=== PATIENT | female | born 1990 | race Caucasian/White ===

== ENCOUNTER 2025-02-23 10:43 | Emergency (ER) | payer SELFPAY ==
[2025-02-23 11:09] LABS: Specific Gravity 1.029 (1.005-1.030)
[2025-02-23 11:12] LABS: Specific Gravity 1.029 (1.005-1.030); Urine Bacteria None Seen /HPF (<20); Urine Bilirubin NEGATIVE (Negative); Urine Blood 1+ (Negative); Urine Clarity Extremely Turbid (Clear); Urine Color Yellow (Yellow); Urine Culture Reflex Order REFLEXED; Urine Glucose NEGATIVE (Negative); Urine Ketones 1+ (Negative); Urine Microscopic Reflex YN ORDER UMIC; Urine Mucus 4+ /HPF (None Seen); Urine Nitrite NEGATIVE (Negative); Urine Protein 1+ (Negative); Urine Urobilinogen 1+ (Normal)
[2025-02-23 11:23] LABS: Absolute Basophils 0.1 K/uL (0-0.5); Absolute Eosinophils 0.1 K/uL (0-0.5); Absolute Lymphocytes (CBC) 2.5 K/uL (0.7-4.9); Absolute Monocytes 0.4 K/uL (0.1-1.3); Absolute Neutrophil 4.2 K/uL (1.8-8.0); Basophils % 0.7 % (0-1.3); Eosinophils % 2.1 % (0-4.4); Hematocrit 39.2 % (36.0-45.0); Hemoglobin 13.6 g/dL (12.0-15.0); Lymphocytes % 34.1 % (15.3-44.8); MCH 33.7 pg (27.0-35.0); MCHC 34.6 g/dL (32.0-36.0); MCV 97.2 fL (80-100); MPV 7.9 fL (7.6-11.3); Monocytes % 5.6 % (3.3-12.3); Neutrophils % 57.5 % (41.7-73.7); Platelets 249 thou/uL (152-406); RBC Red Blood Cell Count 4.04 M/uL (3.86-4.86)
[2025-02-23 11:44] LABS: ALT/SGPT 15 U/L (13-56); Albumin 3.8 g/dL (3.4-5.0); Alkaline Phosphatase 68 U/L (45-117); Anion Gap 8.5 mEq/L (5.0-15.0); BUN Blood Urea Nitrogen 7 mg/dL (7-18); Bicarbonate 24 mEq/L (21-32); Bilirubin Total 0.7 mg/dL (0.2-1.0); Globulin 3.7 g/dL (2.3-3.5); Glomerular Filtration Rate 114 ml/min (=/>90); Glucose Level 93 mg/dL (74-106); Lipase 22 U/L (13-75); Potassium 3.5 mEq/L (3.5-5.1); Protein, Total 7.5 g/dL (6.4-8.2); Sodium Level 137 mEq/L (136-145)
[2025-02-23 11:54] LABS: AST/SGOT < 10 U/L (15-37)
[2025-02-23] MEDS ORDERED: ONDANSETRON 4 MG/2 ML VIAL ONE (11:59)
[2025-02-23] MEDS ORDERED: NA CHLORIDE 0.9% 1,000 ML ONE (11:59)
[2025-02-23] MEDS ORDERED: NA CHLORIDE 0.9% 100 ML ONE (12:11)
[2025-02-23] MEDS ORDERED: CEFTRIAXONE 1000 MG/VIAL ONE (12:11)
--- NOTE | 2025-02-23 12:39 | RAD REPORT ---
EXAMINATION: CT ABDOMEN AND PELVIS WITH CONTRAST CLINICAL INDICATION: Abdominal pain TECHNIQUE: CT abdomen and pelvis was performed, after the administration of 100 cc Isovue-300.. Sagit pritesh and coronal reconstructions were obtained. One or more of the following dose reduction techniques were used: Automated exposure control, adjustment of the mA and kV according to patient si ze, and iterative reconstruction. Unless otherwise specified, incidental findings do not require dedicated imaging follow-up. [id number]. Oral contrast was not given which limits evaluation of bowel and appendix. COMPARISON: .None FINDINGS: Liver, spleen, pancreas, adrenals and kidneys appear unremarkable No evidence of diverticulitis. Normal appendix. Small umbilical hernia. Large ventral hernia pelvis. The neck measures 6 cm. It contains multiple loops of small bowel. The h ernia sac measures 16 cm. No obstruction visualized. No adnexal mass. No evidence of diverticulitis.. Cholecystectomy : IMPRESSION: Large ventral hernia within the pelvis small bowel
--- NOTE | 2025-02-23 12:41 | ER ---
Nurse's Notes [facility] [place] Name: Laquita Urena Age: 34 yrs Sex: Female : 1990 Arrival Date: 02/23/2025 Time: 10:43 Bed 12 Private MD: Diagnosis: Abdominal pain, unspecified;Ventral hernia without obstruction or gangrene-reduced;UTI/ Urinary tract infection, site not specified Presentation: 02/23 11:11 Chief complaint:. Chief complaint: Patient states: Abdominal hernia to the lower right ld1 quadrant. Pt reports pain to LRQ this morning - states "My hernia popped out.". Coronavirus screen: At this time, the client does not indicate any symptoms associated with coronavirus-19. Ebola Screen: No symptoms or risks identified at this time. Initial Sepsis Screen: Does the patient meet any 2 criteria? No. Patient's initial sepsis screen is negative. Does the patient have a suspected source of infection? No. Patient's initial sepsis screen is negative. Risk Assessment: Do you want to hurt yourself or someone else? Patient reports no desire to harm self or others. Onset of symptoms was February 23, 2025 at 11:13. 11:11 Method Of Arrival: Ambulatory ld1 11:11 Acuity: FER 3 ld1 Triage Assessment: 11:11 General: Appears in no apparent distress. comfortable, Behavior is calm, cooperative, ld1 appropriate for age. Pain: Complains of pain in right lower quadrant Pain does not radiate. Pain currently is 8 out of 10 on a pain scale. Quality of pain is described as throbbing, Pain began suddenly, Is continuous. EENT: No signs and/or symptoms were reported regarding the EENT system. Neuro: Level of Consciousness is awake, alert, obeys commands, Oriented to person, place, time, situation. Cardiovascular: Capillary refill < 3 seconds Patient's skin is warm and dry. Respiratory: Airway is patent Respiratory effort is even, unlabored. GI: Abdomen is round non-distended, Reports lower abdominal pain. : No signs and/or symptoms were reported regarding the genitourinary system. Derm: No signs and/or symptoms reported regarding the dermatologic system. Musculoskeletal: No signs and/or symptoms reported regarding the musculoskeletal system. ROOM ATTENDANTS: 13:26 LMP N/A - control method, Not me1 Historical: - Allergies: 11:10 Reglan; ld1 - PMHx: 11:10 Depressive disorder; ld1 11:11 Hypertensive disorder; ld1 - PSHx: 11:10 Cholecystectomy; section; ld1 - Immunization history:: Adult Immunizations up to date. - Infectious Disease History:: Denies. - Social history:: Smoking status: Patient denies any tobacco usage or history of. - Family history:: not pertinent. Screenin:10 [facility] ED Fall Risk Assessment (Adult) History of falling in the last 3 months, me1 including since admission No falls in past 3 months (0 pts) Confusion or Disorientation No (0 pts) Intoxicated or Sedated No (0 pts) Impaired Gait No (0 pts) Mobility Assist Device Used No (0 pt) Altered Elimination No (0 pt) Score/Fall Risk Level 0 - 2 = Low Risk Maintained a safe environment, Provided non-skid footwear, Hourly rounding (assess needs \\T\\ fall precautionary measures) done. Abuse screen: Denies threats or abuse. Nutritional screening: No deficits noted. Tuberculosis screening: No symptoms or risk factors identified. Assessment: 12:10 General: Appears in no apparent distress. well groomed, well developed, well nourished, me1 Behavior is calm, cooperative, appropriate for age, Reports Abdominal hernia to the lower right quadrant. Pt reports pain to LRQ this morning - states "My hernia popped out.". Pain: Complains of pain in umbilical area and abdomen and right lower quadrant Pain does not radiate. Pain currently is 6 out of 10 on a pain scale. Quality of pain is described as aching, crampy, Pain began gradually, Is continuous. Neuro: Level of Consciousness is awake, alert, obeys commands, Oriented to person, place, time, situation, Appropriate for age. Cardiovascular: Patient's skin is warm and dry. Respiratory: Airway is patent Trachea midline Respiratory effort is even, unlabored, Respiratory pattern is regular, symmetrical. GI: No signs and/or symptoms were reported involving the gastrointestinal system. Abdomen is round non-distended, Bowel sounds present X 4 quads. Abd is soft X 4 quads. : No signs and/or symptoms were reported regarding the genitourinary system. EENT: No signs and/or symptoms were reported regarding the EENT system. Derm: Skin is intact, is healthy with good turgor, Skin is pink, warm \\T\\ dry. Musculoskeletal: No signs and/or symptoms reported regarding the musculoskeletal system. 13:08 Reassessment: Discharge delayed for rocephin to finish infusing. me1 Vital Signs: 11:11 BP 153 / 99; Pulse 99; Resp 18; Temp 97.8(O); Pulse Ox 100% on R/A; Weight 84.37 kg; ld1 Height 5 ft. 5 in. ; Pain 6/10; 13:25 BP 142 / 88; Pulse 91; Resp 16; Temp 98.1; Pulse Ox 100% ; me1 11:11 Body Mass Index 30.95 (84.37 kg, 165.1 cm) ld1 11:11 Pain Scale: Adult ld1 ED Course: 10:44 Patient arrived in ED. im 10:45 Nj Helm MD is Attending Physician. zeynep 11:11 Arm band placed on right wrist. ld1 11:13 Triage completed. ld1 11:15 Inserted saline lock: 20 gauge in right antecubital area, using aseptic technique. ld1 Blood collected. Flushed with 10 mL NS. 11:15 Urinalysis w/ reflexes Sent. ld1 12:04 Ivana Cabello, DIMAS is Primary Nurse. me1 12:04 Urine Culture Sent. me1 12:10 Patient has correct armband on for positive identification. Bed in low position. Call me1 light in reach. Side rails up X2. Provided Education on: POC. Verbalized understanding.. Client placed on continuous cardiac and pulse oximetry monitoring. NIBP monitoring applied. Pulse ox on. NIBP on. 12:10 No provider procedures requiring assistance completed. me1 12:29 CT Abd/Pelvis - IV Contrast Only In Process Unspecified. EDMS 12:40 Ronny Brady MD is Referral Physician. zeynep 13:26 IV discontinued, intact, bleeding controlled, No redness/swelling at site. Pressure me1 dressing applied. Administered Medications: 12:10 Drug: Ondansetron IVP 4 mg IVP once; over 2 minutes Route: IVP; Site: right antecubital;me1 12:51 Follow up: Response: No adverse reaction; Nausea is decreased me1 12:10 Drug: NS 0.9% IV 1000 ml IV at 1 bolus Per protocol; to be given as a bolus over 60 me1 minutes Route: IV; Rate: 1 bolus; Site: right antecubital; 13:23 Follow up: IV Status: Completed infusion me1 12:17 Drug: Rocephin IV 1 grams IV at per protocol once; Given slow IV push per pharmacy me1 instructions Route: IV; Rate: per protocol; Site: right antecubital; 13:22 Follow up: Response: No adverse reaction; IV Status: Completed infusion me1 12:51 Drug: Ciprofloxacin PO 500 mg PO once Route: PO; me1 13:22 Follow up: Response: No adverse reaction me1 Medication: 12:10 VIS not applicable for this client. me1 Outcome: 12:41 Discharge ordered by . zeynep 13:26 Discharged to home ambulatory, me1 13:26 Condition: stable 13:26 Discharge instructions given to patient, Instructed on discharge instructions, follow up and referral plans. medication usage, Demonstrated understanding of instructions, follow-up care, medications, Prescriptions given X 1, 13:27 Patient left the ED. me1 Signatures: Dispatcher [employer] EDNj Joseph MD MD cha Sims, Lauren, DIMAS RN ld1 Kyung Barton Michelle, RN RN me1 Corrections: (The following items were deleted from the chart) 11:13 11:11 Chief complaint: ld1 ld1 13:23 11:11 Chief complaint: Patient states: Abdominal hernia to the lower right quadrant. Pt me1 reports pain to LRQ this morning - states "My hernia popped out." ld1
--- NOTE | 2025-02-23 12:41 | EDPHYS ---
Physician Documentation [facility] Name: Laquita Urena Age: 34 yrs Sex: Female : 1990 Arrival Date: 02/23/2025 Time: 10:43 Bed 12 Private MD: ED Physician Nj Helm HPI: 02/23 12:31 This 34 yrs old Female presents to ER via Ambulatory with complaints of zeynep Abdominal Pain. 12:31 The patient presents with abdominal pain right lower quadrant. Onset: The zeynep symptoms/episode began/occurred 2 day(s) ago. The symptoms do not radiate. Modifying factors: The symptoms are alleviated by nothing. Severity of pain: At its worst the pain was moderate in the emergency department the pain has improved moderately. The patient has experienced similar episodes in the past, several times. TOOL PLANNER: 13:26 LMP N/A - control method, Not me1 Historical: - Allergies: 11:10 Reglan; ld1 - PMHx: 11:10 Depressive disorder; ld1 11:11 Hypertensive disorder; ld1 - PSHx: 11:10 Cholecystectomy; section; ld1 - Immunization history:: Adult Immunizations up to date. - Infectious Disease History:: Denies. - Social history:: Smoking status: Patient denies any tobacco usage or history of. - Family history:: not pertinent. ROS: 12:31 Constitutional: Negative for fever, chills, and weight loss, Eyes: Negative for injury, zeynep pain, redness, and discharge, ENT: Negative for injury, pain, and discharge, Neck: Negative for injury, pain, and swelling, Cardiovascular: Negative for chest pain, palpitations, and edema, Respiratory: Negative for shortness of breath, cough, wheezing, and pleuritic chest pain, Back: Negative for injury and pain, : Negative for injury, bleeding, discharge, and swelling, MS/Extremity: Negative for injury and deformity, Skin: Negative for injury, rash, and discoloration, Neuro: Negative for headache, weakness, numbness, tingling, and seizure, Psych: Negative for depression, anxiety, suicide ideation, homicidal ideation, and hallucinations, Allergy/Immunology: Negative for hives, rash, and allergies, Endocrine: Negative for neck swelling, polydipsia, polyuria, polyphagia, and marked weight changes, Hematologic/Lymphatic: Negative for swollen nodes, abnormal bleeding, and unusual bruising, 12:31 Abdomen/GI: Positive for abdominal pain, of the right lower quadrant, right ventral hernia reduced, Exam: 12:38 Constitutional: This is a well developed, well nourished patient who is awake, alert, zeynep and in no acute distress. Head/Face: Normocephalic, atraumatic. Eyes: Pupils equal round and reactive to light, extra-ocular motions intact. Lids and lashes normal. Conjunctiva and sclera are non-icteric and not injected. Cornea within normal limits. Periorbital areas with no swelling, redness, or edema. ENT: Nares patent. No nasal discharge, no septal abnormalities noted. Tympanic membranes are normal and external auditory canals are clear. Oropharynx with no redness, swelling, or masses, exudates, or evidence of obstruction, uvula midline. Mucous membranes moist. Neck: Trachea midline, no thyromegaly or masses palpated, and no cervical lymphadenopathy. Supple, full range of motion without nuchal rigidity, or vertebral point tenderness. No Meningismus. Chest/axilla: Normal chest wall appearance and motion. Nontender with no deformity. No lesions are appreciated. Cardiovascular: Regular rate and rhythm with a normal S1 and S2. No gallops, murmurs, or rubs. Normal PMI, no JVD. No pulse deficits. Respiratory: Lungs have equal breath sounds bilaterally, clear to auscultation and percussion. No rales, rhonchi or wheezes noted. No increased work of breathing, no retractions or nasal flaring. Back: No spinal tenderness. No costovertebral tenderness. Full range of motion. Skin: Warm, dry with normal turgor. Normal color with no rashes, no lesions, and no evidence of cellulitis. MS/ Extremity: Pulses equal, no cyanosis. Neurovascular intact. Full, normal range of motion., bilateral aka Neuro: Awake and alert, GCS 15, oriented to person, place, time, and situation. Cranial nerves II-XII grossly intact. Motor strength 5/5 in all extremities. Sensory grossly intact. Cerebellar exam normal. Normal gait. Psych: Awake, alert, with orientation to person, place and time. Behavior, mood, and affect are within normal limits. 12:38 Abdomen/GI: Inspection: abdomen appears normal, Bowel sounds: normal, Palpation: mild abdominal tenderness, in the right lower quadrant, Liver: no appreciated palpable abnormalities, Hernia: noted in the umbilical area, incarceration, is not appreciated, tenderness, that is mild, bowel sounds are appreciated on auscultation, Vital Signs: 11:11 BP 153 / 99; Pulse 99; Resp 18; Temp 97.8(O); Pulse Ox 100% on R/A; Weight 84.37 kg; ld1 Height 5 ft. 5 in. ; Pain 6/10; 13:25 BP 142 / 88; Pulse 91; Resp 16; Temp 98.1; Pulse Ox 100% ; me1 11:11 Body Mass Index 30.95 (84.37 kg, 165.1 cm) ld1 11:11 Pain Scale: Adult ld1 MDM: 10:45 Medical Screening Exam initiated zeynep 12:39 Differential diagnosis: appendicitis, bowel obstruction, non-specific abd pain, zeynep pancreatitis, Pyelonephritis, urinary tract infection. Data reviewed: vital signs, nurses notes, EKG. Consideration of Admission/Observation Escalation of care including admission/observation considered. I considered the following discharge prescriptions or medication management in the emergency department Medications were administered in the Emergency Department. See MAR. Test considered but Not performed: CT: no ct , hernia reduced easily. 02/23 10:45 Order name: CBC with Diff; Complete Time: 12:09 [facility] 02/23 10:45 Order name: CMP; Complete Time: 12: [facility] 02/23 10:45 Order name: Lipase; Complete Time: 12:09 [facility] 02/23 10:45 Order name: Test, Urine; Complete Time: 12:09 [facility] 02/23 10:45 Order name: Urinalysis w/ reflexes; Complete Time: 12:09 [facility] 02/23 11:18 Order name: Urine Culture [facility] 02/23 12:10 Order name: CT Abd/Pelvis - IV Contrast Only [facility] 02/23 10:45 Order name: IV Saline Lock; Complete Time: 11:15 [facility] 02/23 10:45 Order name: Labs collected and sent; Complete Time: 11:15 [facility] Administered Medications: 12:10 Drug: Ondansetron IVP 4 mg IVP once; over 2 minutes Route: IVP; Site: right antecubital;id1 12:51 Follow up: Response: No adverse reaction; Nausea is decreased me1 12:10 Drug: NS 0.9% IV 1000 ml IV at 1 bolus Per protocol; to be given as a bolus over 60 me1 minutes Route: IV; Rate: 1 bolus; Site: right antecubital; 13:23 Follow up: IV Status: Completed infusion me1 12:17 Drug: Rocephin IV 1 grams IV at per protocol once; Given slow IV push per pharmacy me1 instructions Route: IV; Rate: per protocol; Site: right antecubital; 13:22 Follow up: Response: No adverse reaction; IV Status: Completed infusion me1 12:51 Drug: Ciprofloxacin PO 500 mg PO once Route: PO; me1 13:22 Follow up: Response: No adverse reaction me1 Disposition Summary: 02/23/25 12:41 Discharge Ordered Notes: Location: Home zeynep Problem: new zeynep Symptoms: have improved zeynep Condition: Stable zeynep Diagnosis - Abdominal pain, unspecified zeynep - Ventral hernia without obstruction or gangrene - reduced zeynep - UTI/ Urinary tract infection, site not specified zeynep Followup: zeynep - With: Private Physician - When: 2 - 3 days - Reason: Recheck today's complaints, Continuance of care, Re-evaluation by your physician Followup: zeynep - With: Ronny Brady MD - When: 2 - 3 days - Reason: Recheck today's complaints, Re-evaluation by your physician Discharge Instructions: - Discharge Summary Sheet zeynep - Abdominal Pain, Adult zeynep - Dysuria zeynep - Hernia, Adult zeynep - Urinary Tract Infection, Adult zeynep - Hernia, Adult, [id number] [facility] Forms: - Medication Reconciliation Form zeynep - Antibiotic Education zeynep - Prescription Opioid Use zeynep - Patient Portal Instructions [facility] - Leadership Thank You Letter [facility] Prescriptions: - Cipro 250 mg Oral tablet - take 1 tablet ORAL route every 12 hours; 14 tablet; Refills: 0, Product zeynep Selection Permitted Signatures: Dispatcher [employer] Nj Barrientos MD MD cha Sims, Lauren RN RN ld1 Ivana Cabello RN RN me1
[2025-02-23] MEDS ORDERED: CIPROFLOXACIN HCL 500 MG TAB ONE (12:49)
[2025-02-23 13:31] VITALS: O2SAT 100
[2025-02-23 13:33] VITALS: BP 142/88; TEMP 98.1
== END 2025-02-23 13:27 | disposition home or self-care (01) ==
LOC: ER 10:43
DX: K43.9 Ventral hernia without obstruction or gangrene (principal); N39.0 Urinary tract infection, site not specified
CPT/HCPCS: 36415; 74177; 80053; 81001; 81025; 83690; 85025; 87086; 87088; 96365; 96375; 99284; J0696; J2405; J7030; Q9967